=== PATIENT | female | born 1985 | race Hispanic/Latino ===

== ENCOUNTER 2018-09-02 21:07 | Inpatient (IN) | payer OTHER ==
[2018-09-02 21:58] VITALS: O2SAT 100
--- NOTE | 2018-09-02 22:29 | ED PDOC ---
HPI: Psych/Substance Abuse Time Seen by Provider: 09/02/18 22:26 Chief Complaint (Nursing): Psychiatric Evaluation Chief Complaint (Provider): psych eval History Per: Patient (33 y/o female recent diagnosis with depression and start of citaprazolam x 3 weeks without improvement. Has moved from [place] to [place] with worsening symptoms associated social anxiety. Notes SI and plan to jump out of window in apartment. Patient states she would not jump out of window b/c she is afraid to do so.) Past Medical History Reviewed: Historical Data, Nursing Documentation, Vital Signs Vital Signs: Last Vital Signs Temp 98.3 F 09/02/18 21:55 Pulse 64 09/02/18 21:55 Resp 16 09/02/18 21:55 BP 113/68 09/02/18 21:55 Pulse Ox 100 09/02/18 21:55 - Medical History PMH: Depression (hx severe depression) - Family History Family History: States: No Known Family Hx - Allergies Allergies/Adverse Reactions: Allergies Allergy/AdvReac Type Severity Reaction Status Date / Time No Known Allergies Allergy Verified 09/02/18 21:55 Review of Systems ROS Statement: Except As Marked, All Systems Reviewed And Found Negative Physical Exam - Reviewed Nursing Documentation Reviewed: Yes Vital Signs Reviewed: Yes - Physical Exam Appears: Positive for: Well, Non-toxic, No Acute Distress Head Exam: Positive for: ATRAUMATIC, NORMAL INSPECTION, NORMOCEPHALIC Skin: Positive for: Normal Color, Warm, DRY Eye Exam: Positive for: EOMI, Normal appearance, PERRL ENT: Positive for: Normal ENT Inspection Neck: Positive for: Normal, Painless ROM Cardiovascular/Chest: Positive for: Regular Rate, Rhythm Respiratory: Positive for: CNT, Normal Breath Sounds Gastrointestinal/Abdominal: Positive for: Normal Exam, Soft Back: Positive for: Normal Inspection Extremity: Positive for: Normal ROM Neurologic/Psych: Positive for: Alert, Oriented - Laboratory Results Result Diagrams: 09/03/18 00:50 09/03/18 00:50 - ECG O2 Sat by Pulse Oximetry: 100 - Progress ED Course And Treament: SEEN BY CRISIS D/W DR. ESCAMILLA DIAGNOSIS DEPRESSION ADMIT TO PSYCH Disposition - Clinical Impression Clinical Impression: Depression - Patient ED Disposition Is Patient to be Admitted: Yes - Disposition Disposition Time: 01:30 Condition: FAIR - Pt Status Changed To: Hospital Disposition Of: Inpatient - Admit Certification Admit to Inpatient:: After my assessment, the patient will require hospitalization for at least two midnights. This is because of the severity of symptoms shown, intensity of services needed, and/or the medical risk in this patient being treated as an outpatient.
[2018-09-03 01:21] LABS: BASO % 0.6 % (0.0-2.0); EOS # 0.2 K/uL (0.0-0.7); EOS % 2.7 % (0.0-4.0); LYMPH # 3.1 K/uL (1.0-4.3); LYMPH % 42.1 % (20.0-40.0); MEAN CELL VOLUME 82.2 fl (81.0-99.0); MEAN CORPUSCULAR HGB CONC 32.8 g/dL (33.0-37.0); MEAN PLATELET VOLUME 8.5 fl (7.2-11.7); MONO # 0.4 K/uL (0.0-0.8); MONO % 5.9 % (0.0-10.0); NEUT # 3.6 K/uL (1.8-7.0); NEUT % 48.7 % (50.0-75.0); NRBC % 0.1 % (0.0-0.0); RBC 4.83 Mil/uL (3.80-5.20); RED CELL DISTRIBUTION WIDTH 12.7 % (11.5-14.5); WHITE BLOOD COUNT 7.4 K/uL (4.8-10.8)
[2018-09-03 01:33] LABS: ALB/GLOB RATIO 1.3 (1.0-2.1); ALBUMIN 4.1 g/dL (3.5-5.0); ALT/SGPT 29 U/L (9-52); AST/SGOT 15 U/L (14-36); BLOOD UREA NITROGEN 17 mg/dl (7-17); CALCIUM 9.4 mg/dL (8.4-10.2); GFR NON-AFRICAN AMERICAN > 60
[2018-09-03 01:34] LABS: SQUAMOUS EPITHIAL 3 /hpf (0-5); URINE BACTERIA RARE (<OCC); URINE BILIRUBIN NEGATIVE (NEGATIVE); URINE BLOOD NEGATIVE (NEGATIVE); URINE CLARITY SLIGHTY-CLOUDY (Clear); URINE COLOR YELLOW (YELLOW); URINE GLUCOSE (UA) NEG (NEGATIVE); URINE LEUKOCYTE ESTERASE TRACE Leu/uL (Negative); URINE PROTEIN NEGATIVE (NEGATIVE); URINE UROBILINOGEN 0.2-1.0 mg/dL (0.2-1.0)
[2018-09-03 01:42] LABS: BARBITURATES, UR NEGATIVE (NEGATIVE); BENZODIAZEPINES, UR NEGATIVE (NEGATIVE); OPIATES, UR NEGATIVE (NEGATIVE); PHENCYCLIDINE, UR NEGATIVE (NEGATIVE)
[2018-09-03] MEDS ORDERED: DiphenhydrAMINE 50 mg/ml Inj IM PRN (02:41)
[2018-09-03] MEDS ORDERED: Magnesium Hydroxide Susp 30 ml UD PO PRN (02:41)
[2018-09-03] MEDS ORDERED: Alum-Mag Hydrox-Simethicone Susp (30 mL) PO PRN (02:41)
--- NOTE | 2018-09-03 02:54 | PCM.BM ---
<Susu Jameson - Last Filed: 09/03/18 03:21> Treatment Plan Problems - Problems identified on initial assessmt Altered Sleep Patterns Date Initiated: 09/03/18 Time Initiated: 02:51 Assessment reference: NA Status: Active Less than Optimal Nutrition Date Initiated: 09/03/18 Time Initiated: 02:52 Assessment reference: NA Status: Active Hopelessness/Helplessness Date Initiated: 09/03/18 Time Initiated: 03:22 Assessment reference: NA Status: Active Treatment assets and liabiliti Patient Assests: cooperative, educated, self-reliant, ADL independent, physically healthy, negotiates basic needs, cognitively intact (limited support) Patient Liabilities: other (limited support) - Milieu Protocol Maintain good personal hygiene: daily Encourage regular showers, daily Remind patient to perform daily oral care, other Assist patient to perform ADL's (prn) Conduct patient checks and document Observation sheet: Q15 minutes Maintain personal safety: every shift Educate patient to report safety concerns to staff, every shift Monitor environment for contraband/sharps Medication safety: Monitor for expected outcome, potential side effects: every shift, Assess barriers to learning: every shift, Assess readiness for medication education: every shift <Dorene Partida - Last Filed: 09/03/18 16:24> Treatment assets and liabiliti Patient Assests: adapts well, cooperative, educated (Pt. reports completing high school and having a college education.), resourceful, self-reliant, ADL independent, physically healthy, good support system (. Pt. reports having a loving and supportive relationship with and identifies him as only support in . Pt. reports frequent communication with family who all reside in [place]. ) Patient Liabilities: other (Pt. reports family resides in [place]. Pt. identifies recent move to [place]/culture of new job as primary stressors contributing to acute onset of sxs) Family Contact Family involvement: Family/SO is involved Family contact: Patient agrees to contact, Family has been contacted by patient, Telephone contact initiated by staff Family contact name: Memo()([phone]) Family contacted how many times per week?: 2 - Goals for Treatment Patient goals for treatment: Patient to continue stabilization on 3NP through medication management and group/supportive therapy to address sxs of depression (improvement in sleep, energy, motivation, focus) and eliminate suicidal ideations. Patient to be encouraged to attend groups regularly to promote self- awareness, self-esteem, and improve insight, compliance,and coping skills. Patient to be provided with referral for appropriate level of aftercare to reduce risk of future hospitalizations and ensure safety in the community. Pt. identified tx goal as improving sleep, decreasing sxs of anxiety, and improve focus/motivation. Pt. minimizing suicidal ideations leading to admission. Discharge/Continuing Care - Education Needs Education Needs: Family Medication, Family Diagnosis/Disease Process, Family Coping Skills, Family Community resources, Family Aftercare Safety Plan, Patient Medication, Patient Diagnosis/Disease Process, Patient Coping Skills, Patient Community resources, Patient Aftercare Safety Plan - Discharge Discharge Criteria: Tolerates medication w/o severe side effects, Free of Suicidal thoughts, Normal sleep pattern, Reduction of target symptoms (energy, motivation, focus, feelings of sadness) Discharge to:: Home, With Family <Oh Gomez - Last Filed: 09/07/18 09:54> Family Contact Family contact comment: Business Support Manager spoke with pt's , Sarkis Newell [phone], to discuss recent increases of Abilify and Effexor. Business Support Manager relayed that pt continues to appear very depressed with flat, blunted affect and poor motivation and energy. Business Support Manager empathized that being on the unit when a pt does not want to be can be difficult, yet pt still lacks a motivation or plan that would help the treatment team feel that pt would do well in the community at this point. Pt was still endorsing passive SI during treatment team on 09/04 and was unable to speak to the team in detail or provide them with sufficient evidence that pt would not be a danger to herself upon discharge. Pt is still tearful at times, but has been attending groups and speaking frequently with the art therapist. Pt's reported that he has secured pt with a therapist and a psychiatrist outpatient for when she is discharged. He will bring in names during visiting hours. Discharge/Continuing Care - Treatment Team Participation Patient/Family/SO Statement: 09/07/18 09:58 Pt seen in treatment team on 09/04/18. As per pt she is feeling "I'm ok." Pt reported that sleep continues to be difficult and she is having difficulty sleeping through the night. Pt reported that she is not finding the unit therapeutic as she feels "trapped." However, pt continues to endorse passive SI. Pt presented as tearful and paranoid with flat affect and guarded disposition. Pt became tearful intermittently during treatment team. Medication increases of Effexor and Abilify were discussed. Discussed with Family/SO: Yes Was Patient/Family/SO present at Treatment Team Meeting: Yes <Adri Garcia - Last Filed: 09/07/18 14:59> - Diagnosis (1) Depression Status: Acute Interventions: psychotherapy, pharmacotherapy 09/07/18 14:59
[2018-09-03 08:37] LABS: T4 6.45 ug/dl (5.5-11.0)
--- NOTE | 2018-09-03 13:28 | CP.PCM.CON ---
History of Present Illness - History of Present Illness History of Present Illness: 33 yo female with history of depression admitted to psyche unit because of worsening depression and anxiety. Review of Systems - Review of Systems All systems: reviewed and no additional remarkable complaints except (aside from those mentioned above, 12 point system review were negative by me) Past Patient History - Tetanus Immunizations Tetanus Immunization: Unknown - Past Social History Smoking Status: Never Smoked Chewing Tobacco Use: No Cigar Use: No Alcohol: Occasional Drugs: Denies - CARDIAC Hx Cardiac Disorders: No Hx Hypertension: No - PULMONARY Hx Respiratory Disorders: No Hx Tuberculosis: No - NEUROLOGICAL Hx Neurological Disorder: No HX Cerebrovascular Accident: No Hx Seizures: No - HEENT Hx HEENT Problems: No - RENAL Hx Chronic Kidney Disease: No - ENDOCRINE/METABOLIC Hx Endocrine Disorders: No - HEMATOLOGICAL/ONCOLOGICAL Hx Blood Disorders: No Hx Cancer: No Hx Human Immunodeficiency Virus (HIV): No - INTEGUMENTARY Hx Dermatological Problems: No - MUSCULOSKELETAL/RHEUMATOLOGICAL Hx Musculoskeletal Disorders: No - GASTROINTESTINAL Hx Gastrointestinal Disorders: No - GENITOURINARY/GYNECOLOGICAL Hx Genitourinary Disorders: No Hx Sexually Transmitted Disorders: No - PSYCHIATRIC Hx Substance Use: No - SURGICAL HISTORY Hx Surgeries: No - ANESTHESIA Hx Anesthesia: No Meds Allergies/Adverse Reactions: Allergies Allergy/AdvReac Type Severity Reaction Status Date / Time No Known Allergies Allergy Verified 09/02/18 21:55 - Medications Medications: Current Medications Acetaminophen (Tylenol 325mg Tab) 650 mg PO Q4 PRN PRN Reason: pain 4-7 Al Hydrox/Mg Hydrox/Simethicone (Maalox Plus 30 Ml) 30 ml PO Q4 PRN PRN Reason: Dyspepsia Diphenhydramine HCl (Benadryl) 50 mg IM Q6 PRN PRN Reason: Extrapyramidal S/S Unable PO Diphenhydramine HCl (Benadryl) 50 mg PO Q6 PRN PRN Reason: Extrapyramidal Symptoms Diphenhydramine HCl (Benadryl) 50 mg PO HS PRN PRN Reason: Sleep Haloperidol (Haldol) 5 mg PO Q4 PRN PRN Reason: Agitation Haloperidol Lactate (Haldol) 5 mg IM Q4 PRN PRN Reason: Agitation, Unable to Take PO Lorazepam (Ativan) 2 mg IM Q4 PRN PRN Reason: Anxiety/Agitation,Unable PO Lorazepam (Ativan) 1 mg PO Q6 PRN PRN Reason: Anxiety/Agitation Magnesium Hydroxide (Milk Of Magnesia) 30 ml PO HS PRN PRN Reason: Constipation Physical Exam - Constitutional Appears: No Acute Distress - Head Exam Head Exam: ATRAUMATIC - Eye Exam Eye Exam: absent: Scleral icterus - ENT Exam ENT Exam: Mucous Membranes Moist - Neck Exam Neck exam: Negative for: Meningismus - Respiratory Exam Respiratory Exam: absent: Rales, Rhonchi, Wheezes, Respiratory Distress - Cardiovascular Exam Cardiovascular Exam: REGULAR RHYTHM, +S1, +S2 - GI/Abdominal Exam GI & Abdominal Exam: Soft. absent: Tenderness - Rectal Exam Rectal Exam: Deferred - Extremities Exam Extremities exam: Negative for: calf tenderness, pedal edema - Back Exam Back exam: NORMAL INSPECTION - Neurological Exam Neurological exam: Alert, Oriented x3 - Psychiatric Exam Psychiatric exam: Normal Affect - Skin Skin Exam: Dry, Intact Results - Vital Signs Recent Vital Signs: Last Vital Signs Temp 97.5 F L 09/03/18 09:25 Pulse 61 09/03/18 09:25 Resp 18 09/03/18 09:25 BP 117/79 09/03/18 09:25 Pulse Ox 100 09/03/18 02:11 - Labs Result Diagrams: 09/03/18 00:50 09/03/18 00:50 Labs: Laboratory Results - last 24 hr 09/03/18 09/03/18 09/03/18 00:50 00:50 00:50 WBC 7.4 RBC 4.83 Hgb 13.0 Hct 39.7 MCV 82.2 MCH 27.0 MCHC 32.8 L RDW 12.7 Plt Count 287 MPV 8.5 Neut % (Auto) 48.7 L Lymph % (Auto) 42.1 H [place] % (Auto) 5.9 Eos % (Auto) 2.7 Baso % (Auto) 0.6 Neut # (Auto) 3.6 Lymph # (Auto) 3.1 [place] # (Auto) 0.4 Eos # (Auto) 0.2 Baso # (Auto) 0.0 Sodium 139 Potassium 4.0 Chloride 103 Carbon Dioxide 26 Anion Gap 14 BUN 17 Creatinine 0.6 L Est GFR ( Amer) > 60 Est GFR (Non-Af Amer) > 60 Random Glucose 94 Hemoglobin A1c Calcium 9.4 Total Bilirubin < 0.1 L AST 15 ALT 29 Alkaline Phosphatase 74 Total Protein 7.4 Albumin 4.1 Globulin 3.3 Albumin/Globulin Ratio 1.3 Triglycerides Cholesterol LDL Cholesterol Direct HDL Cholesterol Thyroxine (T4) TSH 3rd Generation Urine Color Urine Clarity Urine pH Ur Specific [place] Urine Protein Urine Glucose (UA) Urine Ketones Urine Blood Urine Nitrate Urine Bilirubin Urine Urobilinogen Ur Leukocyte Esterase Urine RBC (Auto) Urine Microscopic WBC Ur Squamous Epith Cells Urine Bacteria Urine Opiates Screen Negative Urine Methadone Screen Negative Ur Barbiturates Screen Negative Ur Phencyclidine Scrn Negative Ur Amphetamines Screen Negative U Benzodiazepines Scrn Negative U Oth Cocaine Metabols Negative U Cannabinoids Screen Negative Alcohol, Quantitative < 10 09/03/18 09/03/18 09/03/18 00:50 07:45 07:45 WBC RBC Hgb Hct MCV MCH MCHC RDW Plt Count MPV Neut % (Auto) Lymph % (Auto) [place] % (Auto) Eos % (Auto) Baso % (Auto) Neut # (Auto) Lymph # (Auto) [place] # (Auto) Eos # (Auto) Baso # (Auto) Sodium Potassium Chloride Carbon Dioxide Anion Gap BUN Creatinine Est GFR ( Amer) Est GFR (Non-Af Amer) Random Glucose Hemoglobin A1c 5.5 Calcium Total Bilirubin AST ALT Alkaline Phosphatase Total Protein Albumin Globulin Albumin/Globulin Ratio Triglycerides 69 Cholesterol 140 LDL Cholesterol Direct 76 HDL Cholesterol 53 Thyroxine (T4) 6.45 TSH 3rd Generation 1.49 Urine Color Yellow Urine Clarity Slighty-cloudy Urine pH 6.0 Ur Specific [place] 1.012 Urine Protein Negative Urine Glucose (UA) Neg Urine Ketones Negative Urine Blood Negative Urine Nitrate Negative Urine Bilirubin Negative Urine Urobilinogen 0.2-1.0 Ur Leukocyte Esterase Trace Urine RBC (Auto) 3 Urine Microscopic WBC 1 Ur Squamous Epith Cells 3 Urine Bacteria Rare Urine Opiates Screen Urine Methadone Screen Ur Barbiturates Screen Ur Phencyclidine Scrn Ur Amphetamines Screen U Benzodiazepines Scrn U Oth Cocaine Metabols U Cannabinoids Screen Alcohol, Quantitative Assessment & Plan (1) Depression Status: Acute Comment: psyche is managing
[2018-09-03] MEDS ORDERED: Venlafaxine 37.5 mg ER Cap PO STA (13:44)
--- NOTE | 2018-09-03 16:32 | PCM.PSYCH ---
Initial Psychiatric Evaluation - Initial Psychiatric Evaluation Type of Admission: Voluntary Chief Complaint (in patient's own words): I feel I am unable to function History of Present Illness and Precipitating Events: pt is 33ys old female with previous diagnosis of depression brought to ER by for having suicidal ideation by jumping off her building pt has history of depression since 2013, reported has been increasingly depressed for past three weeks as she moved from [place] to [place] also having difficulty adjusting to her new job and some differences with her spouse , pt has been having suicidal ideation, last week attempted to cut her wrist, previous suicidal attempt by strangling herself in 2014 reported poor concentration, low energy and poor motivation, denied perceptual disturbances, no reported substance use collateral information CW (BORA) met with pt's , Sarkis Newell- [phone], who reported that he brought pt into [facility] ED because has been expresssing suicidal ideations with a possible plan to "jump of her 25-story apartment that pt and recently moved into;however, pt stated during triage that she "would not jump out of the window because she is afraid to do so." Pt's reported that he and pt have been for 1.5 year; and he is aware of pt's history of depression. Mr. Newell stated that pt has had 1 suicidal attempt, whereas, pt attempted hang herself, but she did not go to a hospital. Pt's stated that [place]; and stayed for a while with her family. Mr. Newell stated that he is also somewhat concerned about pt's current mental state because pt exhibited self-injurious behaviors about 2 weeks ago, as pt and were cooking; pt's reported that pt used the "knife" they were using; and ended up cutting her left wrist a "little bit." Mr. Newell stated that pt began to take Citaprazolam x3 week; and he has not seen much improvement in her mood. Pt's stated that he and pt moved from [place] to [place] last week; and pt is still adjusting to a the "move" and holding a "new job." Pt's stated pt has limited social life and he believes that it could be the "root" of pt's current depressive state. Current Medications: Active Medications Generic Name Dose Route Start Last Admin Trade Name Freq PRN Reason Stop Dose Admin Acetaminophen 650 mg 09/03/18 02:41 Tylenol 325mg Tab PO Q4 PRN pain 4-7 Al Hydrox/Mg Hydrox/Simethicone 30 ml 09/03/18 02:41 Maalox Plus 30 Ml PO Q4 PRN Dyspepsia Diphenhydramine HCl 50 mg 09/03/18 02:41 Benadryl IM Q6 PRN Extrapyramidal S/S Unable PO Diphenhydramine HCl 50 mg 09/03/18 02:41 Benadryl PO Q6 PRN Extrapyramidal Symptoms Diphenhydramine HCl 50 mg 09/03/18 02:41 Benadryl PO HS PRN Sleep Haloperidol 5 mg 09/03/18 02:41 Haldol PO Q4 PRN Agitation Haloperidol Lactate 5 mg 09/03/18 02:41 Haldol IM Q4 PRN Agitation, Unable to Take PO Lorazepam 2 mg 09/03/18 02:41 Ativan IM Q4 PRN Anxiety/Agitation,Unable PO Lorazepam 1 mg 09/03/18 02:41 Ativan PO Q6 PRN Anxiety/Agitation Magnesium Hydroxide 30 ml 09/03/18 02:41 Milk Of Magnesia PO HS PRN Constipation Past Psychiatric History - Past Psychiatric History Explanation of prior treatment: outpatient treatment by citalopram/poor response Pertinent Medical Hx (Current Medical&Sleep Prob, Allergies): Allergies Allergy/AdvReac Type Severity Reaction Status Date / Time No Known Allergies Allergy Verified 09/02/18 21:55 Mental Status Examination - Personal Presentation Personal Presentation: Looks stated age, Looks younger than stated age - Affect Affect: Constricted, Depressed - Motor Activity Motor Activity: Psychomotor Retardation - Reliability in Providing Information Reliability in Providing Information: Fair - Speech Speech: Relevant - Mood Mood: Depressed, Anxious - Formal Thought Process Formal Thought Process: No Impairment - Obsessions/Compulsions Obsessions: No Compulsions: No - Cognitive Functions Orientation: Person, Place Sensorium: Alert - Risk Risk: Suicidal, Diminished functioning - Strength & Assets Inventory Strength & Assets Inventory: Family support - Limitations Additional comments: work difficulties DSM 5 DX - DSM 5 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
--- NOTE | 2018-09-03 18:59 | CARD ---
APPROVED REPORT Date of service: 09/03/2018 EKG Measurement Heart [id number] <Conclusion> Sinus bradycardia Otherwise normal ECG
[2018-09-04] MEDS ORDERED: Venlafaxine 75 mg ER Cap PO STA (11:02)
--- NOTE | 2018-09-04 12:57 | PCM.PYCHPN ---
Psychiatric Progress Note - Psychiatric Progress Note Patient seen today, length of contact: pt evaluated discussed with team chart reviewed Patient Chief Complaint: I could not sleep at night Problems Identified/Issues Discussed: pt evaluated with treatment team, presenting with depressed mood and affect, continues to be guarded, appears paranoid, pt unhappy about being in the hospital, feels depressed to end up in this situation, CBT provided, advised pt about relaxation techniques, challenging the negative thoughts and educated her about importance of medications and therapy in her treatment plan , pt indicated she continues to have suicidal ideation without active plan on the unit, discussed increasing dose of effexor and abilify, no reported side effects, encouraged pt to attend groups pt denied perceptual disturbances, non elicited Medical Problems: outpatient treatment by citalopram/poor response DSM 5 Symptoms Update: major depression severe with psychotic features borderline personality traits Medication Change: Yes (increase effexor ) Medical Record Reviewed: Yes Mental Status Examination - Cognitive Function Orientation: Person, Place, Situation Memory: Intact Attention: WNL Concentration: WNL Association: WNL Fund of Knowledge: WNL Decription of patient's judgement and insights: poor insight, fir judgment - Mood Mood: Depressed, Anxious - Affect Affect: Constricted, Depressed - Speech Speech: Soft - Formal Thought Process Formal Thought Process: Paranoia Psychotic Thoughts and Behaviors: pt guarded evasive and paranoid - Suicidal Ideation Suicidal Ideation: Yes - Homicidal Ideation Homicidal Ideation: No Goal/Treatment Plan - Goal/Treatment Plan Need for Continued Stay: Severe depression anxiety, Discharge may exacerbated symptoms Progress Toward Problem(s) and Goals/Treatment Plan: increase effexor 75mg increase abilify 5mg CBT group and supportive therapy monitor patient for psychopharmacological effects and side effect profile
[2018-09-05] MEDS: Venlafaxine 75 mg ER Cap PO SCH (10:08)
--- NOTE | 2018-09-05 12:51 | PCM.PYCHPN ---
Psychiatric Progress Note - Psychiatric Progress Note Patient seen today, length of contact: pt evaluated discussed with team chart reviewed Patient Chief Complaint: I get too hard on myself Problems Identified/Issues Discussed: pt evaluated , less guarded, affect less constricted, pt reported doing self reflection and realizing putting too much pressure on herself with a lot of guilt, CBT provided, educated patient about importance of challenging negative thoughts and having more positive thoughts no reported side effects of medications pt denied perceptual disturbances, non elicited , denied any current thoughts of self harm on the unit treatment plan discussed with upon pt consent Medical Problems: outpatient treatment by citalopram/poor response Medication Change: No Medical Record Reviewed: Yes Mental Status Examination - Cognitive Function Orientation: Person, Place, Situation Memory: Intact Attention: WNL Concentration: WNL Association: WNL Fund of Knowledge: WNL Decription of patient's judgement and insights: poor insight, fir judgment - Mood Mood: Depressed, Anxious - Affect Affect: Constricted, Depressed - Speech Speech: Soft - Formal Thought Process Formal Thought Process: Paranoia Psychotic Thoughts and Behaviors: pt guarded evasive and paranoid - Suicidal Ideation Suicidal Ideation: Yes - Homicidal Ideation Homicidal Ideation: No Goal/Treatment Plan - Goal/Treatment Plan Need for Continued Stay: Severe depression anxiety, Discharge may exacerbated symptoms Progress Toward Problem(s) and Goals/Treatment Plan: effexor 75mg abilify 5mg CBT group and supportive therapy monitor patient for psychopharmacological effects and side effect profile
[2018-09-06] MEDS: Venlafaxine 75 mg ER Cap PO SCH (09:50)
--- NOTE | 2018-09-06 11:41 | PCM.PYCHPN ---
Psychiatric Progress Note - Psychiatric Progress Note Patient seen today, length of contact: pt evaluated discussed with team chart reviewed Patient Chief Complaint: I am feeling better today Problems Identified/Issues Discussed: pt evaluated ,reported better mood, presenting with brighter affect , less guarded, more interactive with staff and other patients, CBT provided discussing positive coping skills with stress no reported side effects of medications pt denied perceptual disturbances, non elicited , denied any current thoughts of self harm on the unit treatment plan discussed with upon pt consent Medical Problems: outpatient treatment by citalopram/poor response DSM 5 Symptoms Update: major depression Medication Change: No Medical Record Reviewed: Yes Mental Status Examination - Cognitive Function Orientation: Person, Place, Situation Memory: Intact Attention: WNL Concentration: WNL Association: WNL Fund of Knowledge: [facility] Decription of patient's judgement and insights: poor insight, fir judgment - Mood Mood: Depressed, Anxious - Affect Affect: Constricted, Depressed - Speech Speech: Soft - Formal Thought Process Formal Thought Process: Paranoia Psychotic Thoughts and Behaviors: pt guarded evasive and paranoid - Suicidal Ideation Suicidal Ideation: No - Homicidal Ideation Homicidal Ideation: No Goal/Treatment Plan - Goal/Treatment Plan Need for Continued Stay: Severe depression anxiety, Discharge may exacerbated symptoms Progress Toward Problem(s) and Goals/Treatment Plan: effexor 75mg abilify 5mg CBT group and supportive therapy monitor patient for psychopharmacological effects and side effect profile
[2018-09-07] MEDS: Venlafaxine 75 mg ER Cap PO SCH (09:04)
--- NOTE | 2018-09-07 15:03 | PCM.PYCHPN ---
Psychiatric Progress Note - Psychiatric Progress Note Patient seen today, length of contact: pt evaluated discussed with team chart reviewed Patient Chief Complaint: I am worried about work but I know I have to take it one thing at a time Problems Identified/Issues Discussed: pt evaluated ,reported feeling worried and anxious about her work, but able to verbalize possible coping skills with her anxiety, stated her mood is better , presenting with brighter affect , less guarded, more interactive with staff and other patients, CBT provided discussing positive coping skills with stress no reported side effects of medications pt denied perceptual disturbances, non elicited , denied any current thoughts of self harm on the unit Medical Problems: outpatient treatment by citalopram/poor response DSM 5 Symptoms Update: major depression recurrent severe Medication Change: No Medical Record Reviewed: Yes Mental Status Examination - Cognitive Function Orientation: Person, Place, Situation Memory: Intact Attention: WNL Concentration: WNL Association: WNL Fund of Knowledge: WN Decription of patient's judgement and insights: poor insight, fir judgment - Mood Mood: Depressed, Anxious - Affect Affect: Constricted, Depressed - Speech Speech: Soft - Formal Thought Process Psychotic Thoughts and Behaviors: pt guarded evasive and paranoid - Suicidal Ideation Suicidal Ideation: No - Homicidal Ideation Homicidal Ideation: No Goal/Treatment Plan - Goal/Treatment Plan Need for Continued Stay: Severe depression anxiety, Discharge may exacerbated symptoms Progress Toward Problem(s) and Goals/Treatment Plan: continue with effexor 75mg abilify 5mg CBT group and supportive therapy monitor patient for psychopharmacological effects and side effect profile
[2018-09-07 16:49] VITALS: RESP 18
[2018-09-08 09:05] VITALS: BP 118/67; PULSE 88; TEMP 97.9
[2018-09-08] MEDS: Venlafaxine 75 mg ER Cap PO SCH (09:10)
--- NOTE | 2018-09-08 12:47 | PCM.PYCHDC ---
Mental Status Examination - Mental Status Examination Orientation: Person, Place, Situation Memory: Intact Mood: Neutral Affect: Broad Speech: Appropriate Attention: WNL Concentration: WNL Association: WNL Fund of Knowledge: WNL Formal Thought Process: No Impairment Description of patient's judgement and insight: partial insight , fair judgment Psychotic Thoughts and Behaviors: pt on discharge, denied psycjotic symptoms and non elicited Suicidal Ideation: No Current Homicidal Ideation?: No Discharge Summary - Discharge Note Reason for Hospitalization: pt is 33ys old female with previous diagnosis of depression brought to ER by for having suicidal ideation by jumping off her building pt has history of depression since 2013, reported has been increasingly depressed for past three weeks as she moved from [place] to [place] also having difficulty adjusting to her new job and some differences with her spouse , pt has been having suicidal ideation, last week attempted to cut her wrist, previous suicidal attempt by strangling herself in 2014 reported poor concentration, low energy and poor motivation, denied perceptual disturbances, no reported substance use collateral information CW ([facility]) met with pt's , Sarkis Newell- [phone], who reported that he brought pt into [facility] because has been expresssing suicidal ideations with a possible plan to "jump of her 25-story apartment that pt and recently moved into;however, pt stated during triage that she "would not jump out of the window because she is afraid to do so." Pt's reported that he and pt have been for 1.5 year; and he is aware of pt's history of depression. Mr. Newell stated that pt has had 1 suicidal attempt, whereas, pt attempted hang herself, but she did not go to a hospital. Pt's stated that [place]; and stayed for a while with her family. Mr. Newell stated that he is also somewhat concerned about pt's current mental state because pt exhibited self-injurious behaviors about 2 weeks ago, as pt and were cooking; pt's reported that pt used the "knife" they were using; and ended up cutting her left wrist a "little bit." Mr. Newell stated that pt began to take Citaprazolam x3 week; and he has not seen much improvement in her mood. Pt's stated that he and pt moved from [place] to [place] last week; and pt is still adjusting to a the "move" and holding a "new job." Pt's stated pt has limited social life and he believes that it could be the "root" of pt's current depressive state. Consultations:: List each consultation separately and include: 1. Reason for request. 2. Findings. 3. Follow-up Summary of Hospital Course include:: 1. Description of specific treatment plan utilized for patients during their course of treatmen. 2. Summarize the time- course for resolution of acute symptoms and/or regressed behaviors. 3. Describe issues identified and worked on during hospitalization. 4. Describe medication utilized. 5. Describe medical problems identified and treated. 6. Reassessment of suicide risk Summary of Hospital Course: pt on admission was depressed, guarded, paranoid , presenting with suicidal ideations pt was started on effexor 37.5mg , increased gradually to 75mg daily , pt was also started on abilify , increased to 5mg daily, pt gradually became less paranoid, presented with brighter affect, attended groups no reported side effects of medications CBT was provided and pt was able to verbalize healthier coping skills with stress other than self harm on discharge mental status was stable, pt denied any suicidal or homicidal ideation follow up arranged by social media marketing manager with outpatient psychiatrist - Diagnosis (1) Depression Status: Acute - Final Diagnosis (DSM 5) Condition upon Discharge: FAIR DSM 5: major depression recurrent severe Disposition: HOME/ ROUTINE Follow-up Treatment Plan: continue with effexor 75mg abilify 5mg CBT group and supportive therapy monitor patient for psychopharmacological effects and side effect profile Prescriptions/Medication Reconciliation: ARIPiprazole [Abilify] 5 mg PO HS 30 Days #30 tab traZODone [Desyrel] 50 mg PO HS 30 Days #30 tab Venlafaxine [Effexor XR] 75 mg PO DAILY 30 Days #30 cer - Smoking Cessation Smoking Cessation Medication prescribed: No - Antipsychotic Medications Pt discharged on 2 or more routine antipsychotic medications: No
== END 2018-09-08 12:04 | disposition home or self-care (01) | DRG 885 ==
LOC: H.ER 21:07 → H.ERHOLD 09-03 01:48 → H.PSYCH 09-03 02:37
PROVIDERS: ADMIT Psychiatry & Neurology Psychiatry; ATTEND Psychiatry & Neurology Psychiatry
PROC: GZHZZZZ Group Psychotherapy (ICD-10-PCS; principal; 2018-09-03)
PROC: GZ58ZZZ Individual Psychotherapy, Cognitive-Behavioral (ICD-10-PCS; 2018-09-03)
DX: F33.3 Major depressive disorder, recurrent, severe with psychotic symptoms (principal); R45.851 Suicidal ideations; F60.3 Borderline personality disorder; F41.9 Anxiety disorder, unspecified; Z91.5 Personal history of self-harm